=== PATIENT | female | born 1985 | race Caucasian/White ===

== ENCOUNTER → 2016-09-24 | Outpatient (CLI) | payer OTHER | LOC: FIMAGING 07:34 | PROVIDERS: ATTEND Obstetrics & Gynecology | DX: Z34.02 Encounter for supervision of normal first pregnancy, second trimester (principal); Z3A.19 19 weeks gestation of pregnancy ==

== ENCOUNTER 2017-02-13 23:16 | Inpatient (IN) | payer OTHER ==
[2017-02-14] MEDS ORDERED: LR 1,000 ML IV PRN (00:58)
[2017-02-14] MEDS ORDERED: TERBUTALINE SULFATE 1 MG/ML VIAL IV PRN (00:58)
[2017-02-14] MEDS ORDERED: OXYTOCIN 20 UNIT in LR 1,000 ML IV PRN (00:58)
[2017-02-14] MEDS ORDERED: OLIVE OIL 118 ML BTL MISC PRN (00:58)
[2017-02-14] MEDS ORDERED: EPSOM SALT 454 GM TP PRN (00:58)
[2017-02-14] MEDS ORDERED: LIDOCAINE 1% 300 MG/30 ML SDV ONE (01:46)
[2017-02-14] MEDS ORDERED: OLIVE OIL 118 ML BTL ONE (01:46)
[2017-02-14] MEDS ORDERED: MISOPROSTOL 200 MCG TAB ONE (01:47)
[2017-02-14] MEDS ORDERED: AMMONIA AROMATIC 1 EACH AMP IH ONE (01:47)
[2017-02-14] MEDS ORDERED: TERBUTALINE SULFATE 1 MG/ML VIAL ONE (01:47)
[2017-02-14] MEDS ORDERED: OXYTOCIN 10 UNIT/ML VIAL ONE (01:47)
[2017-02-14 01:50] LABS: PLATELET COUNT 178 10^3/uL (150-400)
[2017-02-14] MEDS ORDERED: PHENYLEPHRINE HCL 100 MCG/ML SYR ONE (09:05)
[2017-02-14] MEDS ORDERED: fentaNYL 2MCG/ML/BUP 0.1% RTU 100 ML BAG EP ONE (09:05)
[2017-02-14] MEDS ORDERED: BUPIVACAINE 0.25% 30 ML SDV ONE ×2 (09:05→17:27)
[2017-02-14] MEDS ORDERED: fentaNYL 100 MCG/2 ML INJ ONE ×2 (09:06→17:28)
[2017-02-14] MEDS ORDERED: ONDANSETRON 4 MG/2 ML VIAL IVP PRN (12:03)
[2017-02-14] MEDS ORDERED: PHENYLEPHRINE HCL 100 MCG/ML SYR IVP PRN (12:03)
--- NOTE | 2017-02-14 12:04 | OBPROG ---
Labor Progress Note Assessment/Plan: Assessment: 32 y/o @ 40 weeks with SROM and spontaneous labor. Plan: Pt now confortable with her epidural and she has made good steady cervical change. I AROM her forebag. Expectant labor management for now. status is reassuring. 02/14/17 12:04 Subjective/Intrapartum Course: 02/14/17 11:58 Pt is now comfortable with her epidural. She is resting comfortably and her nausea resolved. Objective: 02/14/17 01:17 Patient ABO/Rh A NEGATIVE 02/14/17 01:17 - SVE Dilation (cm): 7 Effacement (%): 90 Station: -1 Membranes: AROM, SROM Amniotic Fluid Color: Clear - Contraction Pattern Assessment Current Contraction Pattern: Regular (Q 3) - FHR Assessment Collins FHR (bpm): 130 FHR Pattern Variability: Moderate FHR Category: 1 - Procedures Non-surgical Procedures: Amniotomy - AP Antepartum Course: 02/14/17 11:59 Pt transferred PNC @ 25 weeks, Rh neg s/p Rhogam. She reported some "wetness" @ 10 am 02/13/17 and was evaluated in the office for neg ROM. Contractions increased over the afternoon and she presented to Labor and Delivery in the evening of 02/13 with another gush of fluid and was + amnisure. She is now having slow and steady contractions. Oxytocin Orders Assessment - Pre-Induction/Augmentation Assessment Gestational Age: 40 week(s) and 0 day(s) ICD10 Worksheet Patient Problems: Problems Problem Status Onset active term labor Acute
--- NOTE | 2017-02-14 12:04 | POSTANESTH ---
Post Anesthetic Evaluation Cardiovascular Status: Normal, Stable, Similar to Pre-Op Cond Respiratory Status: Normal, Stable, Similar to Pre-op Cond. Level of Consciousness/Mental Status: Can Participate in Eval, Alert and Oriented Pain Control: Adequate, Prn Tx Ordered Nausea/Vomiting Control: Adequate, Prn Tx Ordered Complications Possibly Related to Anesthesia: None Noted
--- NOTE | 2017-02-14 12:07 | PREANESOB ---
Obstetric Pre-Anesthesia Info - General Info : 1 Para: 0 KEI: 02/14/17 Gestational Age: 40 week(s) and 0 day(s) - Info Status: Full Term Monitors: External FHR Baseline (bpm): 135 FHR Pattern: Reassuring - Labor Status Cervical Dilation per last OB SVE: 4 Station per last OB SVE: -1 Amniotic Fluid Color: Clear Indications for Labor Analgesia: Pain Control Labor Epidural: Proposed Anesthesia ROS: Negative. Allergies/Adverse Reactions: Allergy/AdvReac Type Severity Reaction Status Date / Time No Known Allergies Allergy Unverified 09/21/11 11:34 Home Medications: Medication Instructions Recorded DESVENLAFAXINE SUCCINATE [Pristiq] 50 mg PO 09/21/11 Visit Medications: Generic Name Dose Route Start Last Admin Trade Name Freq PRN Reason Stop Dose Admin Diphenhydramine HCl 25 - 50 mg 02/14/17 12:03 Benadryl Injection IVP 08/13/17 12:02 Q6HRS PRN Itching Lactated Ringer's 1,000 mls @ 0 mls/hr 02/14/17 00:58 Lr IV 02/15/17 00:57 PRN PRN SEE PROTOCOL CONDITIONS Protocol Per Protocol Oxytocin 20 unit/ Lactated 1,002 mls @ 150 mls/hr 02/14/17 00:58 Ringer's IV PRN PRN Post- bleeding Fentanyl/Bupivacaine HCl 100 mls @ 0 mls/hr 02/14/17 12:30 Fentanyl/Bupivacaine/Ns 2 Mcg/Ml 0.1% (Premix EP 02/24/17 12:29 CONT KIRK Protocol As Directed Lactated Ringer's 500 mls @ 0 mls/hr 02/14/17 12:30 Lr IV 08/13/17 12:29 CONT KIRK As Directed Ibuprofen 600 mg 02/14/17 00:58 Motrin PO 08/13/17 00:57 Q6HRS PRN post , inflammation Magnesium Sulfate 454 gm 02/14/17 00:58 Epsom Salt TP 08/13/17 00:57 Q1H PRN perineal discomfort [place] Oil 118 ml 02/14/17 00:58 Sweet Oil MISC 08/13/17 00:57 ONCE PRN perineal massage Ondansetron HCl 4 mg 02/14/17 12:03 Zofran IVP 02/15/17 12:02 Q4HRS PRN Nausea/Vomiting, Can't Take PO Phenylephrine HCl 100 mcg 02/14/17 12:03 Neosynephrine IVP 08/13/17 12:02 .Q2M PRN Hypotension Terbutaline Sulfate 0.25 mg 02/14/17 00:58 Brethine IV 08/13/17 00:57 ONCE PRN Tachysystole Discontinued Medications Generic Name Dose Route Start Last Admin Trade Name Luma PRN Reason Stop Dose Admin Ammonia (Aromatic Spirit) Confirm 02/14/17 01:47 Ammonia Aromatic Administered 02/14/17 01:48 Dose 1 each IH .STK-MED ONE Bupivacaine HCl Confirm 02/14/17 09:05 Sensorcaine 0.25% Sdv Administered 02/14/17 09:06 Dose 30 ml .ROUTE .STK-MED ONE Fentanyl Confirm 02/14/17 09:06 Sublimaze Administered 02/14/17 09:07 Dose 100 mcg .ROUTE .STK-MED ONE Fentanyl/Bupivacaine HCl Confirm 02/14/17 09:05 Fentanyl/Bupivacaine/Ns 2 Mcg/Ml 0.1% (Premix Administered 02/14/17 09:06 Dose 100 ml EP .STK-MED ONE Lidocaine HCl Confirm 02/14/17 01:46 Lidocaine Hcl 1% Administered 02/14/17 01:47 Dose 300 mg .ROUTE .STK-MED ONE Misoprostol Confirm 02/14/17 01:47 Cytotec Administered 02/14/17 01:48 Dose 800 mcg .ROUTE .STK-MED ONE [place] Oil Confirm 02/14/17 01:46 Sweet Oil Administered 02/14/17 01:47 Dose 118 ml .ROUTE .STK-MED ONE Oxytocin Confirm 02/14/17 01:47 Pitocin Administered 02/14/17 01:48 Dose 40 unit .ROUTE .STK-MED ONE Phenylephrine HCl Confirm 02/14/17 09:05 Neosynephrine Administered 02/14/17 09:06 Dose 1,000 mcg .ROUTE .STK-MED ONE Terbutaline Sulfate Confirm 02/14/17 01:47 Brethine Administered 02/14/17 01:48 Dose 1 mg .ROUTE .STK-MED ONE - Anesthesia History Response to Local Anesthetics: Normal Anesthesia & Operative History: No Prior Problems Family Anesthesia History: Negative - Social History Substance Use/Abuse: Denies - Vital Signs Blood Pressure: 111/75 Heart Rate: 87 Height/Weight (Nursing): Height 162.56 cm Weight 64.41 kg - Focused Exam Neck exam: FROM Mallampati Score: Class 1 Mouth exam: normal dental/mouth exam Pulmonary: no respiratory distress Cardiovascular: regular rate and rhythym Labs: 02/14/17 01:17 Patient ABO/Rh A NEGATIVE 02/14/17 01:17 - Plan Anesthetic Plan: JEROD Consent Signed and on Chart: Yes Patient/Guardian Understands and Agrees to Plan: Yes Urgent/Emergent Case: Thomas mcnair completed preop but documented later for safe timely pt care
[2017-02-14] MEDS ORDERED: fentaNYL 2MCG/ML/BUP 0.1% RTU 100 ML EP SCH (12:30)
[2017-02-14] MEDS ORDERED: LR 500 ML IV SCH (12:30)
--- NOTE | 2017-02-14 12:47 | GHP ---
[f rep st] PREOP HISTORY AND PHYSICAL DATE OF ADMISSION: 02/14/2017 ADMITTING DIAGNOSIS: Intrauterine at 40 weeks' gestation with spontaneous rupture of membr anes and spontaneous labor. HISTORY OF PRESENT ILLNESS: This patient is a 32-year-old, 1, para 0, with a last menstrual period of 05/11/2016, an EDC of 02/14/2017, which was confirmed by a first-trimester ultrasound. Adore sabillon has had good care with [facility], since she transferred at 25 weeks. She or lucia started her care at [place], and then she transferred to [facility]. Ho nataliya, she wished to have delivery at [facility], so she transferred to [facility] at 25 weeks. Her only other risk factor is Rh-negative status, post RhoGAM at 28 we eks. She has had a normal course and progressed to term. On February 13, she had some increa sed wetness and mucus discharge, and started to feel some contractions. She was evaluated at [facility]. She was negative for amnio, nitrazine pooling and ferning, and her cervix was checked , and she was 1 cm. She was discharged home with labor precautions, and her contractions increased o chasity the evening. At 10:30 p.m., she felt another large gush of clear fluid. She presented to Labor and Delivery. On assessment, her AmniSure was performed, and it was positive. She initially had her cervix to be 1 cm dilated. However, it progressed over the course of the evening, having contractio ns every 3-4 minutes. She progressed to 3 cm and then 4 cm. She has had an epidural, and currently she is 7 cm, 90%, -1, and had artificial rupture of the forebag for clear fluid, and it has been a go od labor pattern. status is reassuring, and she is feeling well. Patient has no past obstetri evans history. This is her first . PAST GYNECOLOGICAL HISTORY: She had an abnormal Pap in 2008, and in 2012 had colposcopies both times , but no further treatment. She has had the Gardasil series. She has used the Mela IUD, also oral contraceptive pills and ParaGard for control in the past. PAST MEDICAL HISTORY: She has no significant past medical history. No medical problems. PAST SURGICAL HISTORY: [place] tooth extraction in 2011. ALLERGIES: She has no known drug allergies. MEDICATIONS: Her only medications include vitamins. LABORATORY STUDIES: Her labs are incomplete. We will complete her records, but she is Rh negative. She had a standard panel done that was negative. Her Verifi was negative, and GBS was negative. SOCIAL HISTORY: She is . She lives with her , Blas. 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 She denies tobacco, alcohol, and drug use. FAMILY HISTORY: Paternal grandfather and maternal grandfather have adult-onset diabetes. Mom has hy pothyroid. Mom and dad both have GERD. Mom and maternal aunt have melanoma. Father has a seizure d isorder. No other significant family history. REVIEW OF SYSTEMS: Negative, except for pertinent labor symptoms, as above. OBJECTIVE: Today she is afebrile. Vital signs are stable. heart tones are 130s to 140s, reac tive, moderate variability, category 1. She is micheal every 3-4 minutes. Again, currently her cervical dilation is 7, 90%, -1, and she is ruptured for clear fluid. ASSESSMENT AND PLAN: A 32-year-old 1, para 0 at 40 weeks with spontaneous rupture and sponta neous labor for expectant labor management. The patient is comfortable with her epidural, and status is reassuring. /[id number]/MODL
--- NOTE | 2017-02-14 19:56 | OBPROG ---
Labor Progress Note Assessment/Plan: Assessment: 32 y/o @ 40 weeks with SROM and spontaneous labor. Plan: Pt has had slow but steady progress. She is comfortable with her epidural. We will start pitocin to boost the strength of her contractions. 02/14/17 12:04 02/14/17 19:55 Subjective/Intrapartum Course: 02/14/17 11:58 Pt is now comfortable with her epidural. She is resting comfortably and her nausea resolved. 02/14/17 19:53 Pt is comfortable with her epidural. She has needed to bolus a few times. Objective: 02/14/17 01:17 Patient ABO/Rh A NEGATIVE 02/14/17 01:17 Temp Pulse Resp BP Pulse Ox 87 111/75 02/14/17 12:07 02/14/17 12:07 - SVE Dilation (cm): 9 Effacement (%): 90 Station: +1 Membranes: AROM, SROM Amniotic Fluid Color: Clear - Contraction Pattern Assessment Current Contraction Pattern: Regular (Q 3-5) - FHR Assessment Collins FHR (bpm): 140 FHR Pattern Variability: Moderate FHR Category: 1 - Procedures Non-surgical Procedures: Amniotomy - AP Antepartum Course: 02/14/17 11:59 Pt transferred PNC @ 25 weeks, Rh neg s/p Rhogam. She reported some "wetness" @ 10 am 02/13/17 and was evaluated in the office for neg ROM. Contractions increased over the afternoon and she presented to Labor and Delivery in the evening of 02/13 with another gush of fluid and was + amnisure. She is now having slow and steady contractions. Oxytocin Orders Assessment - Pre-Induction/Augmentation Assessment Gestational Age: 40 week(s) and 0 day(s) ICD10 Worksheet Patient Problems: Problems Problem Status Onset active term labor Acute
[2017-02-14] MEDS ORDERED: LR 500 ML IV PRN (19:57)
[2017-02-14] MEDS ORDERED: OXYTOCIN 30 UNIT in NS 500 ML IV SCH (20:00)
[2017-02-15] MEDS ORDERED: SIMETHICONE 80 MG TAB CHEW PO PRN (00:10)
[2017-02-15] MEDS ORDERED: HYDROCODONE/APAP 5/325 TAB PO PRN (00:10)
[2017-02-15] MEDS ORDERED: HYDROCORTISONE 0.5% CREAM TP PRN (00:10)
--- NOTE | 2017-02-15 00:15 | OBDEL ---
Info Type: Vaginal Presentation at Delivery: Vertex L&D Analgesia/Anesthesia Type: Epidural GBS+: No Intrapartum Medications: Generic Name Dose Route Start Last Admin Trade Name Freq PRN Reason Stop Dose Admin Lactated Ringer's 1,000 mls @ 0 mls/hr 02/14/17 00:58 02/14/17 19:04 Lr IV 02/15/17 00:57 1,000 mls PRN PRN Administration SEE PROTOCOL CONDITIONS Protocol Per Protocol Oxytocin 30 unit/ Sodium 503 mls @ 0 mls/hr 02/14/17 20:00 02/14/17 19:59 Chloride IV 08/13/17 19:59 503 mls CONT KIRK Administration Protocol Per Protocol - Infant Care Provider Customer Associate/SOFTWARE PROJECT ENGINEER: Felecia Bell - Hospital Course Intrapartum: 02/14/17 11:58 Pt is now comfortable with her epidural. She is resting comfortably and her nausea resolved. 02/14/17 19:53 Pt is comfortable with her epidural. She has needed to bolus a few times. Indications for Delivery: Spontaneous Labor, SROM Vaginal Delivery - Delivery Provider Delivery Physician/CNM: Promise Mattson - Labor and Delivery Onset of Contractions Date: 02/14/16 Onset of Contractions Time: 18:00 Onset of Contractions Type: Augmented Rupture of Membranes Date: 02/13/17 Rupture of Membranes Time: 22:00 Rupture of Membranes Type: Spontaneous Amniotic Fluid Color: Clear Dilation Complete Date: 02/14/17 Dilation Complete Time: 20:58 Placenta Delivery Date: 02/14/17 Placenta Delivery Time: 23:47 Total Hours of Labor: 8789 Non-surgical Procedures: Amniotomy Laceration: 2nd Degree Repair: 2-0, Vicryl Vaginal Sponge Count Correct: Yes Vaginal Needle Count Correct: Yes Vaginal Sweep Performed: No EBL: 200 Delivery Events: Other (Specify) (terminal menonium) - Medications Labor Augmentation/Induction Methods Used: Pitocin Labor Augmentation/Induction Indication: Inadequate Ctx Strength Data KEI: 02/14/17 Gestational Age: 40 week(s) and 1 day(s) Collins Delivery Date: 02/14/17 Delivery Time: 23:44 Sex of : Male Score (1 Min): 8 Score (5 Min): 9 ICD10 Worksheet Patient Problems: Problems Problem Status Onset (spontaneous vaginal delivery) Acute active term labor Acute - ICD10 Problem Qualifiers (2) (spontaneous vaginal delivery)
[2017-02-15] MEDS: IBUPROFEN 600 MG TAB PO PRN ×4 (01:28→19:34)
[2017-02-15 02:41] VITALS: RESP 16
[2017-02-15] MEDS: DOCUSATE SODIUM 100 MG CAP PO PRN ×2 (08:10→19:34)
[2017-02-15] MEDS: ACETAMINOPHEN 325 MG TAB PO PRN ×2 (10:57→16:34)
--- NOTE | 2017-02-15 11:21 | OBPP ---
Progress Note Assessment/Plan: Assessment: ppd# 1 s/p rh negative baby rh + - rhogam ordered unknown rubella status Plan: rhogam check rubella status routine post care 02/15/17 11:18 Subjective/ Course: 02/15/17 11:20 patient is doing great! pain is well controlled but is having some cramping. will use heating pad. denies headache and changes in vision. normal lochia. ambulating. Objective: 02/14/17 01:17 Patient ABO/Rh A NEGATIVE 02/15/17 02:35 Temp Pulse Resp BP Pulse Ox 36.6 C 73 16 93/51 L 95 02/15/17 02:40 02/15/17 02:40 02/15/17 02:40 02/15/17 02:40 02/15/17 02:40 Physical Exam - Physical Exam Neck: non-tender, full range of motion, supple Respiratory: chest non-tender, lungs clear, normal breath sounds Cardiac/Chest: normal peripheral pulses, regular rate, rhythm Abdomen: normal bowel sounds, non-tender Extremities: normal range of motion, non-tender, normal inspection, normal capillary refill Skin: normal color, warm/dry Neuro/Psych: no motor/sensory deficits, alert, normal mood/affect, oriented x 3
[2017-02-15 21:02] VITALS: O2SAT 97
[2017-02-16] MEDS: IBUPROFEN 600 MG TAB PO PRN (04:21)
[2017-02-16 10:13] VITALS: BP 107/70; PULSE 89; TEMP 98.1
--- NOTE | 2017-02-16 12:05 | OBPP ---
Progress Note Assessment/Plan: Assessment: 32 y/o PPD #2 s/p doing well. Plan: D/c home today with Ibuprofen and [place]. Follow-up @ [facility] 4 and 6 weeks. 02/14/17 12:04 02/14/17 19:55 02/16/17 12:03 Subjective/ Course: 02/15/17 11:20 patient is doing great! pain is well controlled but is having some cramping. will use heating pad. denies headache and changes in vision. normal lochia. ambulating. 02/16/17 12:01 Pt is doing well. She has cramping controlled with Ibuprofen and 1 [place]. She is ambulating, voiding without difficulty and has min lochia. Breast feeding is going well, they are working on a correct latch. She is ready to d/c home. Objective: 02/14/17 01:17 Patient ABO/Rh A NEGATIVE 02/15/17 02:35 Temp Pulse Resp BP Pulse Ox 36.7 C 89 16 107/70 97 02/16/17 08:00 02/16/17 08:00 02/16/17 08:00 02/16/17 08:00 02/15/17 20:00 Uterine Position/Fundal Height: Umbilicus -2 Uterine Tone: Firm Physical Exam - Physical Exam Neck: non-tender, full range of motion, supple Respiratory: chest non-tender, lungs clear, normal breath sounds Cardiac/Chest: regular rate, rhythm Abdomen: normal bowel sounds Extremities: swelling (no), Frieda's sign (neg)
--- NOTE | 2017-02-16 12:05 | OBGCSDC ---
General Delivery Information - General Info : 1 Para: 2 Abortions: 0 Type: Vaginal L&D Analgesia/Anesthesia Type: Epidural, Nitrous Admission Date: 02/13/17 Labs: Patient ABO/Rh A NEGATIVE 02/15/17 02:35 Hct 36.9 % (38.0-47.0) L 02/14/17 01:17 - Hospital Course Antepartum: 02/14/17 11:59 Pt transferred PNC @ 25 weeks, Rh neg s/p Rhogam. She reported some "wetness" @ 10 am 02/13/17 and was evaluated in the office for neg ROM. Contractions increased over the afternoon and she presented to Labor and Delivery in the evening of 02/13 with another gush of fluid and was + amnisure. She is now having slow and steady contractions. Intrapartum: 02/14/17 11:58 Pt is now comfortable with her epidural. She is resting comfortably and her nausea resolved. 02/14/17 19:53 Pt is comfortable with her epidural. She has needed to bolus a few times. : 02/15/17 11:20 patient is doing great! pain is well controlled but is having some cramping. will use heating pad. denies headache and changes in vision. normal lochia. ambulating. 02/16/17 12:01 Pt is doing well. She has cramping controlled with Ibuprofen and 1 [place]. She is ambulating, voiding without difficulty and has min lochia. Breast feeding is going well, they are working on a correct latch. She is ready to d/c home. Vaginal - Delivery Provider Delivery Physician/CNM: Promise Mattson - Diagnosis Labor: Augmented Rupture of Membranes Type: Spontaneous Amniotic Fluid Color: Clear Laceration: 2nd Degree Repair: 2-0, Vicryl Delivery Events: Other (Specify) (terminal menonium) - Procedures Non-surgical Procedures: Amniotomy - Delivery Non-surgical Procedures: Amniotomy EBL: 200 Data KEI: 02/14/17 Gestational Age: 40 week(s) and 2 day(s) Collins Delivery Date: 02/14/17 Delivery Time: 23:44 Sex of : Male Score (1 Min): 8 Score (5 Min): 9 Discharge Information - Discharge Information Prescriptions: Hydrocodone/APAP 5/325 [[place] 5/325 (*)] 1 - 2 tab PO Q4HRS PRN #10 tab PRN Reason: Pain, Moderate Ibuprofen [Motrin (*)] 600 mg PO Q6HRS PRN #30 tab PRN Reason: post , inflammation Instruction/Follow Up: Four Weeks, Six Weeks
== END 2017-02-16 13:30 | disposition home or self-care (01) | DRG 775 ==
LOC: FLD 23:16 → OBSVTOIN 23:16 → FOB 02-15 02:05
PROVIDERS: ADMIT Advanced Practice Midwife; ATTEND Advanced Practice Midwife
PROC: 10E0XZZ Delivery of Products of Conception, External Approach (ICD-10-PCS; principal; 2017-02-14)
PROC: 0KQM0ZZ Repair Perineum Muscle, Open Approach (ICD-10-PCS; principal; 2017-02-14)
PROC: 10907ZC Drainage of Amniotic Fluid, Therapeutic from Products of Conception, Via Natural or Artificial Opening (ICD-10-PCS; principal; 2017-02-14)
DX: O70.1 Second degree perineal laceration during delivery (principal); Z3A.40 40 weeks gestation of pregnancy; Z37.0 Single live birth
CPT/HCPCS: J2370; J3010; J3105

== ENCOUNTER → 2017-02-20 | Outpatient (CLI) | payer OTHER | LOC: FLACT 12:44 | PROVIDERS: ATTEND Obstetrics & Gynecology | DX: Z39.1 Encounter for care and examination of lactating mother (principal) | CPT/HCPCS: G0463 ==

== ENCOUNTER 2017-04-17 13:20 | Emergency (ER) | payer OTHER ==
[2017-04-17 13:35] VITALS: TEMP 98.1
--- NOTE | 2017-04-17 14:55 | EDPHY ---
H & P Stated Complaint: 6 days l calf pain/nontraumatic Time Seen by Provider: 04/17/17 14:54 HPI/ROS: HPI: This is a 32-year-old female who presents with Chief Complaint: 6 days l calf pain/nontraumatic Location: Left calf Quality: pain Duration: 6 days Signs and Symptoms: No bleeding, no radiation, no numbness, no weakness, no tingling, no incontinence, no decreased range of motion, no swelling, + pain Timing:waxes and wanes Severity: Mild Context: Patient is 8 weeks presents with 6 day history of left medial left calf pain described as cramping, nonradiating, 2/10 in nature. Nothing makes worse or better. Denies any trauma. Patient reports that she has had mild decrease of activity level since she has been home with her child. She denies any headache/blurred vision/lower extremity edema/recent travel/ shortness of breath/chest. LMP over 28 days ago. Modifying Factors: None Comment: ROS: see HPI Constitutional: No fever, no chills, no weight loss Eyes: No blurred vision Respiratory: No shortness of breath, no cough Cardiovascular: No chest pain Gastrointestinal: No nausea, no vomiting no diarrhea Genitourinary: No dysuria Extremities: No myalgias Neurologic: No weakness, no numbness Skin: No rashes Hematologic: No bruising, no bleeding MEDICAL/SURGICAL/SOCIAL HISTORY: Medical history: Generally healthy. Does not take any regular medications. Surgical history: [place] teeth extraction Social history: . Eight weeks . CONSTITUTIONAL: Well-developed, well-nourished adult white female, awake and alert, no obvious distress HEENT: Atraumatic and normocephalic, PERRL, EOMI. Tympanic membranes clear. Oropharynx clear, no exudate and moist pink mucosa. Airway patent. No lymphadenopathy. No meningismus. Cardiovascular: Normal S1/S2, regular rate, regular rhythm, without murmur rub or gallop. PULMONARY/CHEST: Symmetrical and nontender. Clear to auscultation bilaterally. Good air movement. No accessory muscle usage. ABDOMEN: Soft, nondistended, nontender, no rebound, no guarding, no peritoneal signs, no masses or organomegaly. No CVAT. EXTREMITIES: 2/2 pulses, left KNEE: no effusion, no medial and lateral joint line tenderness, full extension to 180, flexion to 120. No pain with varus and valgus exam. No pain with anterior drawer or posterior drawer test. Left Ankle: Plantar flexion to 50, dorsiflexion to 20. Foot inversion to 35 degree. No tenderness/swelling Anterior talofibular ligament. No tenderness/ swelling Calcaneofibular ligament, no tenderness/swelling posterior talofibular ligament, no tenderness/swelling posterior inferior tibiofibular ligament. Achilles tendon intact. Left calf is the same size as the right calf. Negative Homans sign. No palpable cord. strength 5/5, no deformities, no clubbing, no cyanosis or edema. NEUROLOGICAL: no focal neuro deficits. GCS 15. SKIN: Warm and dry, no erythema. no rash. Good capillary refill. Source: Patient Exam Limitations: No limitations - Personal History LMP (Females 10-55): Over 28 Days Ago Current Tetanus/Diphtheria Vaccine: Yes - Medical/Surgical History Hx Asthma: No Hx Chronic Respiratory Disease: No Hx Diabetes: No Hx Cardiac Disease: No Hx Renal Disease: No Hx Cirrhosis: No Hx Alcoholism: No Hx HIV/AIDS: No Hx Splenectomy or Spleen Trauma: No Other PMH: wisdom teet extraction - Social History Smoking Status: Never smoked Constitutional: Initial Vital Signs Temperature (C) 36.7 C 04/17/17 13:33 Heart Rate 72 04/17/17 13:33 Respiratory Rate 17 04/17/17 13:33 Blood Pressure 110/80 04/17/17 13:33 O2 Sat (%) 96 04/17/17 13:33 O2 Delivery Mode Room Air Allergies/Adverse Reactions: No Known Allergies Allergy (Verified 04/17/17 13:32) Home Medications: Medication Instructions Recorded NK [No Known Home Meds] 04/17/17 Medical Decision Making - Diagnostics Imaging Results: Imaging Impressions Extremity Venous Study 04/17/17 14:24 Impression: No deep venous thrombosis left leg. Findings and recommendations discussed with Emergency Department physician, ALICE MARIE at 15:23 hour, 04/17/2017. Final report concurs with initial preliminary interpretation. ED Course/Re-evaluation: Left lower extremity ultrasound and labs ordered No signs of neurovascular compromise/tenting of skin/compartment syndrome/ extremities and joints examined above and below area of concern and are neurovascularly intact/cellulitis/peripheral vascular disease/varicosities. 1520: Dr. Marie called by radiologist who advised that left lower extremity ultrasound was negative for DVT. 1600: Labs reviewed; no signs of anemia/electrolyte imbalance/leukocytosis. Advised supportive care, rice therapy This patient was seen under the supervision of my primary supervising physician. I evaluated care for this patient independently. Differential Diagnosis: Leg pain differential includes but not limited to hypoalbuminemia, muscular strain, electrolyte imbalance, anemia, restless leg syndrome, chronic venous stasis and DVT. - Data Points Laboratory Results: Laboratory Results 04/17/17 15:30 04/17/17 15:30 04/17/17 04/17/17 15:30 15:30 WBC 5.49 10^3/uL 10^3/uL (3.80-9.50) RBC 4.26 10^6/uL 10^6/uL (4.18-5.33) Hgb 14.2 g/dL g/dL (12.6-16.3) Hct 40.4 % % (38.0-47.0) MCV 94.8 fL fL (81.5-99.8) MCH 33.3 pg pg (27.9-34.1) MCHC 35.1 g/dL g/dL (32.4-36.7) RDW 11.8 % % (11.5-15.2) Plt Count 269 10^3/uL 10^3/uL (150-400) MPV 9.5 fL fL (8.7-11.7) Neut % (Auto) 42.6 % % (39.3-74.2) Lymph % (Auto) 43.0 % % (15.0-45.0) [place] % (Auto) 10.4 % % (4.5-13.0) Eos % (Auto) 2.9 % % (0.6-7.6) Baso % (Auto) 0.7 % % (0.3-1.7) Nucleat RBC Rel Count 0.0 % % (0.0-0.2) Absolute Neuts (auto) 2.34 10^3/uL 10^3/uL (1.70-6.50) Absolute Lymphs (auto) 2.36 10^3/uL 10^3/uL (1.00-3.00) Absolute Monos (auto) 0.57 10^3/uL 10^3/uL (0.30-0.80) Absolute Eos (auto) 0.16 10^3/uL 10^3/uL (0.03-0.40) Absolute Basos (auto) 0.04 10^3/uL 10^3/uL (0.02-0.10) Absolute Nucleated RBC 0.00 10^3/uL 10^3/uL (0-0.01) Immature Gran % 0.4 % % (0.0-1.1) Immature Gran # 0.02 10^3/uL 10^3/uL (0.00-0.10) Sodium 145 mEq/L mEq/L (135-145) Potassium 4.5 mEq/L mEq/L (3.5-5.2) Chloride 102 mEq/L mEq/L (97-110) Carbon Dioxide 27 mEq/l mEq/l (22-31) Anion Gap 16 mEq/L mEq/L (8-16) BUN 13 mg/dL mg/dL (7-23) Creatinine 0.8 mg/dL mg/dL (0.6-1.0) Estimated GFR > 60 Glucose 84 mg/dL mg/dL (70-100) Calcium 10.5 mg/dL H mg/dL (8.5-10.4) Magnesium 2.2 mg/dL mg/dL (1.6-2.3) Departure - Departure Disposition: Home, Routine, Self-Care Clinical Impression: Pain of left calf Strain of calf muscle Qualifiers: Encounter type: initial encounter Laterality: left Qualified Code(s): S86.812A - Strain of other muscle(s) and tendon(s) at lower leg level, left leg, initial encounter Condition: Good Instructions: Muscle Strain (ED), Leg Cramps (ED) Additional Instructions: Laboratory studies are within normal limits. Ultrasound today shows no blood clot in your left leg. Consume a minimum of 8-10 glasses of water or electrolyte fluid replacement drinks that include Gatorade, Powerade, Pedialyte. Take Tylenol 650 mg every 4 hours and/or Ibuprofen 600 mg every 8 hours with food as needed for pain. Performs stretching exercises several times per day. Return to the ER immediately if you experience new or worsening pain, discoloration, numbness, tingling, or any other symptoms that concern you. Referrals: Promise Mattson MD [Primary Care Provider] - 5-7 days, if not improved
[2017-04-17 15:45] LABS: PLATELET COUNT 269 10^3/uL (150-400)
[2017-04-17 16:25] VITALS: BP 132/81; PULSE 61; RESP 18; O2SAT 98
== END 2017-04-17 16:15 | disposition home or self-care (01) ==
DX: S86.812A Strain of other muscle(s) and tendon(s) at lower leg level, left leg, initial encounter (principal); X58.XXXA Exposure to other specified factors, initial encounter

== ENCOUNTER → 2017-10-15 | Outpatient (CLI) | payer OTHER | LOC: BMCIMAGING 14:59 | PROVIDERS: ATTEND Family Medicine | DX: R93.7 Abnormal findings on diagnostic imaging of other parts of musculoskeletal system (principal) ==